=== PATIENT | male | born 1980 | race African-American/Black ===

== ENCOUNTER 2024-01-26 07:49 | Emergency (ER) | payer BC, SELFPAY ==
[2024-01-26] MEDS ORDERED: Ketorolac Tromethamine 30 MG (1 mL) VIAL ONE (08:19)
[2024-01-26 08:44] LABS: #Basophils 0.07 10x3/uL (0.0-0.2); %Basophils 0.6 % (0.0-1.0); %Eosinophils 0.4 % (0.0-10.0); %Lymphocytes 22.1 % (21.0-51.0); %Monocytes 10.9 % (0.0-10.0); %Neutrophils 65.7 % (42.0-75.0); Hematocrit 41.7 % (42.0-52.0); Hemoglobin 13.9 g/dL (14.0-18.0); Mean Corpuscular HGB CONC 33.3 g/dL (32.0-36.0); Mean Corpuscular Volume 84.1 fL (78.0-98.0); Mean Platelet Volume 8.5 fL (7.4-10.4); Platelet Count 429 10x3/uL (130-400); RBC Distribution Width 13.5 % (11.5-14.5); Red Blood Cell (RBC) Count 4.96 mill/uL (4.70-6.10)
[2024-01-26 09:00] LABS: CRP,High Sensitivity (Inhouse) 6.78 mg/dL (< or = 0.5)
[2024-01-26 09:01] LABS: ALT (SGPT) 29 U/L (8-55); AST (SGOT) 25 U/L (5-34); Albumin 4.1 g/dL (3.5-5.0); Alkaline Phosphatase 61 U/L (40-110); Anion Gap 18 mmol/L (10-20); BUN (Urea Nitrogen) 21 mg/dL (8.9-20.6); Bilirubin, Total 1.2 mg/dL (0.2-1.2); Calc. Creatinine Clearance 0 mL/min (70-130); Calcium 9.8 mg/dL (7.8-10.44); Carbon Dioxide 21 mmol/L (22-29); Chloride 104 mmol/L (98-107); Estimated GFR 73; Glucose 132 mg/dL (70-105); Potassium 4.1 mmol/L (3.5-5.1); Protein, Total 8.1 g/dL (6.0-8.3); Sodium 139 mmol/L (136-145)
[2024-01-26] MEDS ORDERED: Lidocaine 1% PF 5 ML VIAL ONE (10:43)
== END 2024-01-26 11:37 | disposition home or self-care (01) ==
LOC: ERS 07:49
DX: M25.521 Pain in right elbow (principal); M10.9 Gout, unspecified; I10 Essential (primary) hypertension
CPT/HCPCS: 20605; 36415; 80053; 83605; 85025; 86141; 87040; J1885